=== PATIENT | female | born 1970 | race Caucasian/White ===

== ENCOUNTER 2019-05-02 15:35 | Inpatient (IN) | payer MEDICARE ==
[2019-05-02] MEDS ORDERED: methylPREDNISolone Sod Succ/PF 125 MG/2 ML VIAL ONE (16:08)
[2019-05-02] MEDS ORDERED: Oxymetazoline HCl 0.05% (30 ML BOT) ONE (16:08)
[2019-05-02 16:34] LABS: Band 9 % (5-11); Eosinophils 4 % (0-10); Hemoglobin 13.4 g/dL (12.0-16.0); Lymphocytes 7 % (21-51); MDiff Complete? YES; Mean Corpuscular HGB CONC 32.6 g/dL (32.0-36.0); Mean Corpuscular Hemoglobin 31.1 pg (27.0-31.0); Mean Corpuscular Volume 95.2 fL (78.0-98.0); Mean Platelet Volume 9.6 fL (7.4-10.4); Monocytes 3 % (0-10); Neutrophil 77 % (42-75); Platelet Clumps SLIGHT; Platelet Count 111 thou/uL (130-400); RBC Distribution Width 13.2 % (11.5-14.5); Red Blood Cell (RBC) Count 4.32 mill/uL (4.20-5.40); White Blood Cell (WBC) Count 13.6 thou/uL (4.8-10.8)
--- NOTE | 2019-05-02 16:35 | RAD ---
Chest 2 views HISTORY: Cough. FINDINGS: Cardiac silhouette and pulmonary vasculature are unremarkable. Mediastinum is midline. No c onfluent airspace consolidation, pneumothorax, or pleural fluid. IMPRESSION: No active cardiopulmonary abnormalities are demonstrated.
[2019-05-02] MEDS ORDERED: Albuterol Sulfate 1.25 MG/3 ML NEB ONE (16:55)
[2019-05-02 19:47] VITALS: BMI 42.6
[2019-05-02] MEDS ORDERED: traMADol HCl 50 MG TAB PO PRN (21:57)
[2019-05-02] MEDS ORDERED: Dicyclomine 20 MG TAB PO PRN (21:57)
[2019-05-02] MEDS ORDERED: Ondansetron ODT 4 MG TAB PO PRN (21:57)
[2019-05-02] MEDS ORDERED: traZODone HCl 50 MG TAB PO SCH (22:30)
[2019-05-02] MEDS ORDERED: tiZANidine HCl 4 MG TAB PO SCH (22:30)
[2019-05-02] MEDS ORDERED: Pregabalin 75 MG CAP PO SCH (22:30)
[2019-05-02] MEDS ORDERED: METAXALONE 400 MG PO SCH (22:30)
[2019-05-02] MEDS ORDERED: Ondansetron ODT 4 MG TAB SL PRN (23:03)
[2019-05-02] MEDS ORDERED: Acetaminophen 325 MG TAB PO PRN (23:03)
[2019-05-02] MEDS ORDERED: Ondansetron PF 4 MG/2 ML Vial IVP PRN (23:03)
[2019-05-02] MEDS ORDERED: Sodium Chloride 0.9% 1,000 ML IV SCH (23:15)
[2019-05-03] MEDS: methylPREDNISolone Sod Succ 40 MG VIAL IVP SCH ×4 (00:22→17:54)
[2019-05-03] MEDS: Promethazine DM 6.25-15mg/5ml 120 ML BOT PO PRN (05:41)
[2019-05-03 05:42] LABS: ALT (SGPT) 9 U/L (8-55); AST (SGOT) 14 U/L (5-34); Albumin 3.8 g/dL (3.5-5.0); Alkaline Phosphatase 77 U/L (40-150); Anion Gap 13 mmol/L (10-20); BUN (Urea Nitrogen) 12 mg/dL (7.0-18.7); Bilirubin, Total 0.2 mg/dL (0.2-1.2); Calc. Creatinine Clearance 130 mL/min (70-130); Calcium 9.2 mg/dL (7.8-10.44); Carbon Dioxide 25 mmol/L (22-29); Chloride 110 mmol/L (98-107); Estimated GFR-MDRD 64; Globulin 2.6 g/dL (2.4-3.5); Glucose 200 mg/dL (70-105); Potassium 4.1 mmol/L (3.5-5.1); Protein, Total 6.4 g/dL (6.0-8.3); Sodium 144 mmol/L (136-145)
[2019-05-03 06:27] LABS: #Lymphocytes 0.7 thou/uL (1.20-3.40); #Monocytes 0.1 thou/uL (0.11-0.59); #Neutrophils 13.7 thou/uL (1.40-6.50); %Basophils 0.1 % (0.0-1.0); %Eosinophils 0.1 % (0.0-10.0); %Lymphocytes 4.7 % (21.0-51.0); %Monocytes 0.8 % (0.0-10.0); %Neutrophils 94.4 % (42.0-75.0); Hemoglobin 11.8 g/dL (12.0-16.0); Mean Corpuscular HGB CONC 32.2 g/dL (32.0-36.0); Mean Corpuscular Hemoglobin 30.9 pg (27.0-31.0); Mean Platelet Volume 9.1 fL (7.4-10.4); Platelet Count 202 thou/uL (130-400); RBC Distribution Width 13.5 % (11.5-14.5); Red Blood Cell (RBC) Count 3.83 mill/uL (4.20-5.40); White Blood Cell (WBC) Count 14.5 thou/uL (4.8-10.8)
[2019-05-03] MEDS: Mometasone/Formoterol 60 PUFF AER INH SCH ×2 (08:50→18:43)
[2019-05-03] MEDS: Levothyroxine Sodium 100 MCG TAB PO SCH (08:51)
[2019-05-03] MEDS: Azithromycin 250 MG TAB PO SCH (08:51)
[2019-05-03] MEDS: guaiFENesin ER 600 MG TAB PO SCH ×2 (08:51→20:21)
[2019-05-03] MEDS: Lisinopril 20 MG TAB PO SCH (08:51)
[2019-05-03] MEDS: tiZANidine HCl 4 MG TAB PO SCH ×3 (08:52→20:21)
[2019-05-03] MEDS: Pregabalin 75 MG CAP PO SCH ×3 (08:54→20:20)
[2019-05-03] MEDS: DESVENLAFAXINE SUCCINATE 50 MG PO SCH (10:07)
[2019-05-03] MEDS: Nicotine 21 MG PATCH TD SCH (10:07)
[2019-05-03] MEDS: SULINDAC 150 MG PO SCH ×2 (10:07→20:25)
[2019-05-03] MEDS ORDERED: methylPREDNISolone Sod Succ 40 MG VIAL IVP SCH (11:45)
--- NOTE | 2019-05-03 14:05 | HP ---
CHIEF COMPLAINT: Respiratory distress. HISTORY OF PRESENT ILLNESS: A 48-year-old female, chronic smoker, presented to the [facility] Emergency Department yesterday afternoon with complaint of worsening productive cough accompanied by tachypnea and tachycardia and noted to be hypoxic on room air. The patient was treated accordingly in the emergency department secondary to her symptoms. However, upon ambulation, continued to display hypoxia with mild respiratory distress. Her chest x-ray was reassuring. Her lab work revealed a mild leukocytosis with left shift. Secondary to her need for supplemental oxygen and respiratory compromise, she was admitted to the floor. As of this morning, she reports this is largely unchanged. She has produced productive phlegm overnight with a regular cough. She remained afebrile. She has been provided normal saline intravenous fluids, scheduled nebulized treatments, and IV Solu-Medrol up to this point. She confirms her history of continued tobacco abuse and states that she is not typically on home oxygen. She is a patient of Dr. 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 PAST MEDICAL HISTORY: Includes; 1. Fibromyalgia. 2. Chronic smoker. 3. Hyperlipidemia. 4. Hypertension. 5. Hypothyroidism. 6. Gastroesophageal reflux disease. 7. Depression. FAMILY HISTORY: Noncontributory. SOCIAL HISTORY: She is a chronic smoker. Occasional ETOH. Denies illicit drug use. ALLERGIES: SULFA AND PINEAPPLE. HOME MEDICATIONS: Include; 1. Lyrica 150 mg p.o. b.i.d. 2. Trazodone 50 mg at bedtime. 3. Tramadol 50 mg q.6 hours p.r.n. 4. Tizanidine 4 mg t.i.d. 5. Sulindac 150 mg b.i.d. 6. Zofran 4 mg q.6 hours p.r.n. 7. Omeprazole 40 mg daily. 8. Metaxalone 400 mg at bedtime. 9. Lisinopril 20 mg daily. 10. Levothyroxine 100 mcg daily. 11. Bentyl 20 mg daily as needed. 12. Pristiq 50 mg daily. REVIEW OF SYSTEMS: GENERAL: Denies fever, chills, or diaphoresis. EAR, NOSE, AND THROAT: Complains of congestion. CARDIOVASCULAR: Denies chest pain or palpitations. RESPIRATORY: Complains of shortness of breath and cough. GASTROINTESTINAL: Denies abdominal pain, nausea, vomiting, diarrhea, or constipation. GENITOURINARY: Denies dysuria. MUSCULOSKELETAL: Complains of chronic musculoskeletal pain. DERM: Denies rash. NEURO: Denies headache. LABORATORY DATA: White blood cell count is 14.5, H and H are 11.8 and 36.8, platelets are 202. Sodium 144, potassium 4.1, BUN is 12, creatinine 0.93 with a GFR of 64, glucose 200, AST 14, ALT 9. IMAGING DATA: On 05/02/2019, chest x-ray shows no active cardiopulmonary abnormality demonstrated. PHYSICAL EXAMINATION: VITAL SIGNS: Temperature is 98.6, pulse is 98, respiratory rate is 20, oxygen 95% on 3 L, blood pressure is 114/53. GENERAL: She is alert and oriented, in no acute distress. She is obese. HEAD, EYES, EARS, NOSE, AND THROAT: Normocephalic, atraumatic. Pupils are equal, round, and reactive to light. Extraocular muscles are intact bilaterally. She has moist mucous membranes. NECK: Supple without lymphadenopathy. CARDIOVASCULAR: Borderline sinus tachycardia. Normal S1, S2. No murmurs. RESPIRATORY: She has coarse breath sounds with few end-expiratory wheezes. She has nasal cannula in place. She is in no active respiratory distress. ABDOMEN: Soft, nontender to palpation. No rebound or guarding. EXTREMITIES: No clubbing, cyanosis, or edema. SKIN: No rashes. NEUROLOGIC: Nonfocal with cranial nerves 2 through 12 grossly intact. ASSESSMENT AND PLAN: 1. Acute bronchospasm with hypoxia. The patient has been started on IV Solu- Medrol, which will be continued. Will provide the patient with an incentive spirometer. She is on supplemental oxygen, which is not at her baseline. We will wean this as tolerated. I will start the patient on Dulera. She is receiving scheduled nebulized treatments. The patient has a mild leukocytosis with left shift and productive phlegm. We will provide her with an oral course of azithromycin. 2. Hypertension. She is hemodynamically stable. Resume her home blood pressure medications. 3. History of dyslipidemia. She is not actively on a statin. 4. Hypothyroidism. We will resume the patient's levothyroxine. 5. Fibromyalgia. We will resume the patient's Lyrica and muscle relaxers. 6. Depression. The patient will be resumed on Pristiq. 7. Smoker. We will provide the patient with a nicotine patch. She has been counseled on need for smoking cessation. 8. Prophylaxis. We will resume the patient's home PPI for GI prophylaxis. We will start her on Lovenox 40 mg daily for DVT prophylaxis. CODE STATUS: Full. DISPOSITION: We will plan to discharge the patient home when she is at or near her baseline respiratory status and effectively wean from supplemental oxygen. Job ID: [id number] [facility]
[2019-05-03] MEDS: Acetaminophen 325 MG TAB PO PRN (15:17)
[2019-05-03] MEDS: BUPRENORPHINE SL SCH (20:19)
[2019-05-03] MEDS: Enoxaparin Sodium 40 MG/0.4 ML SYRINGE SC SCH (20:23)
[2019-05-03] MEDS: traZODone HCl 50 MG TAB PO SCH (20:24)
[2019-05-03] MEDS: METAXALONE 400 MG PO SCH (20:25)
[2019-05-04] MEDS: methylPREDNISolone Sod Succ 40 MG VIAL IVP SCH ×4 (00:21→22:16)
[2019-05-04 05:29] LABS: Anion Gap 13 mmol/L (10-20); BUN (Urea Nitrogen) 19 mg/dL (7.0-18.7); Calc. Creatinine Clearance 142 mL/min (70-130); Calcium 9.1 mg/dL (7.8-10.44); Carbon Dioxide 25 mmol/L (22-29); Chloride 110 mmol/L (98-107); Estimated GFR-MDRD 71; Glucose 182 mg/dL (70-105); Potassium 4.2 mmol/L (3.5-5.1); Sodium 144 mmol/L (136-145)
[2019-05-04 05:56] LABS: Band 4 % (5-11); Hemoglobin 11.4 g/dL (12.0-16.0); Lymphocytes 8 % (21-51); MDiff Complete? YES; Mean Corpuscular HGB CONC 31.6 g/dL (32.0-36.0); Mean Corpuscular Hemoglobin 30.7 pg (27.0-31.0); Mean Corpuscular Volume 97.1 fL (78.0-98.0); Mean Platelet Volume 8.5 fL (7.4-10.4); Monocytes 1 % (0-10); Neutrophil 87 % (42-75); Platelet Count 217 thou/uL (130-400); Platelet Morphology Comment Appears Adequate; RBC Distribution Width 13.8 % (11.5-14.5); RBC Morphology Normal; Red Blood Cell (RBC) Count 3.71 mill/uL (4.20-5.40); White Blood Cell (WBC) Count 23.9 thou/uL (4.8-10.8)
[2019-05-04] MEDS: Mometasone/Formoterol 60 PUFF AER INH SCH ×2 (06:00→18:31)
[2019-05-04] MEDS: Acetaminophen 325 MG TAB PO PRN (08:45)
[2019-05-04] MEDS: tiZANidine HCl 4 MG TAB PO SCH ×3 (08:54→20:50)
[2019-05-04] MEDS: guaiFENesin ER 600 MG TAB PO SCH ×2 (08:54→20:50)
[2019-05-04] MEDS: Pregabalin 75 MG CAP PO SCH ×2 (08:55→20:46)
[2019-05-04] MEDS: Levothyroxine Sodium 100 MCG TAB PO SCH (08:56)
[2019-05-04] MEDS: Azithromycin 250 MG TAB PO SCH (08:57)
[2019-05-04] MEDS: Lisinopril 20 MG TAB PO SCH (08:57)
[2019-05-04] MEDS: Nicotine 21 MG PATCH TD SCH (08:58)
[2019-05-04] MEDS: DESVENLAFAXINE SUCCINATE 50 MG PO SCH (09:08)
[2019-05-04] MEDS: SULINDAC 150 MG PO SCH ×2 (09:09→20:43)
[2019-05-04] MEDS: BUPRENORPHINE SL SCH ×2 (09:10→20:44)
[2019-05-04] MEDS: Promethazine DM 6.25-15mg/5ml 120 ML BOT PO PRN (20:45)
[2019-05-04] MEDS: Enoxaparin Sodium 40 MG/0.4 ML SYRINGE SC SCH (20:45)
[2019-05-04] MEDS: traZODone HCl 50 MG TAB PO SCH (20:46)
[2019-05-04] MEDS: METAXALONE 400 MG PO SCH (20:47)
[2019-05-04] MEDS: Famotidine 20 MG TAB PO SCH (21:36)
[2019-05-05 05:34] LABS: #Basophils 0.1 thou/uL (0.0-0.2); #Lymphocytes 1.3 thou/uL (1.20-3.40); #Monocytes 0.7 thou/uL (0.11-0.59); #Neutrophils 18.8 thou/uL (1.40-6.50); %Basophils 0.5 % (0.0-1.0); %Lymphocytes 6.1 % (21.0-51.0); %Monocytes 3.4 % (0.0-10.0); Hemoglobin 11.5 g/dL (12.0-16.0); Mean Corpuscular HGB CONC 31.4 g/dL (32.0-36.0); Mean Corpuscular Hemoglobin 30.4 pg (27.0-31.0); Mean Corpuscular Volume 96.8 fL (78.0-98.0); Mean Platelet Volume 8.4 fL (7.4-10.4); Platelet Count 223 thou/uL (130-400); RBC Distribution Width 13.6 % (11.5-14.5); White Blood Cell (WBC) Count 20.9 thou/uL (4.8-10.8)
[2019-05-05 05:39] LABS: Anion Gap 12 mmol/L (10-20); BUN (Urea Nitrogen) 23 mg/dL (7.0-18.7); Calc. Creatinine Clearance 141 mL/min (70-130); Calcium 9.1 mg/dL (7.8-10.44); Carbon Dioxide 27 mmol/L (22-29); Chloride 108 mmol/L (98-107); Estimated GFR-MDRD 70; Glucose 164 mg/dL (70-105); Potassium 4.8 mmol/L (3.5-5.1); Sodium 142 mmol/L (136-145)
[2019-05-05] MEDS: methylPREDNISolone Sod Succ 40 MG VIAL IVP SCH ×3 (05:49→21:09)
[2019-05-05] MEDS: Mometasone/Formoterol 60 PUFF AER INH SCH ×2 (06:12→18:43)
[2019-05-05] MEDS: Nicotine 21 MG PATCH TD SCH (09:03)
[2019-05-05] MEDS: Polyethylene Glycol 3350 17 GM Packet PO SCH (09:03)
[2019-05-05] MEDS: Pregabalin 75 MG CAP PO SCH ×2 (09:05→20:38)
[2019-05-05] MEDS: Lisinopril 20 MG TAB PO SCH (09:06)
[2019-05-05] MEDS: tiZANidine HCl 4 MG TAB PO SCH ×3 (09:06→20:39)
[2019-05-05] MEDS: guaiFENesin ER 600 MG TAB PO SCH ×2 (09:06→20:39)
[2019-05-05] MEDS: Levothyroxine Sodium 100 MCG TAB PO SCH ×2 (09:07→09:09)
[2019-05-05] MEDS: Azithromycin 250 MG TAB PO SCH (09:07)
[2019-05-05] MEDS: BUPRENORPHINE SL SCH ×2 (09:10→20:42)
[2019-05-05] MEDS: DESVENLAFAXINE SUCCINATE 50 MG PO SCH (09:10)
[2019-05-05] MEDS: SULINDAC 150 MG PO SCH ×2 (09:11→20:43)
[2019-05-05] MEDS: traZODone HCl 50 MG TAB PO SCH (20:37)
[2019-05-05] MEDS: Enoxaparin Sodium 40 MG/0.4 ML SYRINGE SC SCH (20:40)
[2019-05-05] MEDS: Famotidine 20 MG TAB PO SCH (20:40)
[2019-05-05] MEDS: METAXALONE 400 MG PO SCH (20:45)
[2019-05-05] MEDS: Promethazine DM 6.25-15mg/5ml 120 ML BOT PO PRN (23:02)
[2019-05-06] MEDS: methylPREDNISolone Sod Succ 40 MG VIAL IVP SCH (06:19)
[2019-05-06] MEDS: Mometasone/Formoterol 60 PUFF AER INH SCH (06:22)
[2019-05-06 07:39] VITALS: TEMP 98.6
[2019-05-06] MEDS: Polyethylene Glycol 3350 17 GM Packet PO SCH (08:33)
[2019-05-06] MEDS: Pregabalin 75 MG CAP PO SCH (08:34)
[2019-05-06] MEDS: Levothyroxine Sodium 100 MCG TAB PO SCH (08:36)
[2019-05-06] MEDS: DESVENLAFAXINE SUCCINATE 50 MG PO SCH (08:38)
[2019-05-06] MEDS: BUPRENORPHINE SL SCH (08:38)
[2019-05-06] MEDS: Lisinopril 20 MG TAB PO SCH (08:39)
[2019-05-06] MEDS: guaiFENesin ER 600 MG TAB PO SCH (08:39)
[2019-05-06] MEDS: Nicotine 21 MG PATCH TD SCH (08:39)
[2019-05-06] MEDS: tiZANidine HCl 4 MG TAB PO SCH (08:39)
[2019-05-06] MEDS: Azithromycin 250 MG TAB PO SCH (08:39)
[2019-05-06] MEDS: SULINDAC 150 MG PO SCH (08:50)
[2019-05-06 08:51] VITALS: BP 118/70
--- NOTE | 2019-05-06 11:16 | DIS ---
DATE OF ADMISSION: 05/02/2019 DATE OF DISCHARGE: 05/06/2019 ADMISSION DIAGNOSIS: Acute bronchospasm with hypoxia. SECONDARY DIAGNOSES: Hypertension, dyslipidemia, hypothyroidism, fibromyalgia, obesity, depression, chronic smoker. PROCEDURES: Chest x-ray on 05/02/2019 showed no active cardiopulmonary abnormalities. HOSPITAL COURSE: A 48-year-old female, chronic smoker, presented to the [facility] Emergency Department with URI symptoms accompanied by abnormal vital signs including tachypnea, tachycardia, and hypoxia. She was treated acutely in the emergency department, however, remained hypoxic on room air with any activity. Secondary to her compromised respiratory status, she was admitted, started on IV Solu-Medrol, scheduled neb treatments, and supplemental oxygen. The patient had a frequent and intermittent productive cough. She was provided an oral course of azithromycin during her stay. The patient's vital signs improved back to her baseline. The patient's supplemental oxygen was gradually weaned throughout her stay. She was evaluated by Physical Therapy during her stay and confirmed stability of her functional status. The patient initially did have a mild leukocytosis with left shift; her leukocytosis did increase during her stay, however, this was felt to be secondary from her regular IV Solu-Medrol treatment. She did remain afebrile throughout her stay. At this time, the patient has been able to successfully wean her supplemental oxygen and is breathing well on room air and is appropriate for discharge to which she is amenable. The patient has been counseled on smoking cessation and may potentially benefit from an outpatient followup with Pulmonology for pulmonary function testing. DISPOSITION: The patient was discharged home and may follow up with her primary care physician, Dr. Tony Recio, next week. DISCHARGE MEDICATIONS: Two new medicines include Dulera two puffs b.i.d. and prednisone taper 20 mg two tabs x3 days followed by one tab x3 days. She will resume her usual medications otherwise, which include; 1. Lyrica 150 mg b.i.d. 2. Trazodone 50 mg at bedtime. 3. Tramadol 50 mg q.6 hours p.r.n. 4. Tizanidine 4 mg t.i.d. 5. Sulindac 150 mg b.i.d. 6. Zofran 4 mg q.6 hours p.r.n. 7. Omeprazole 40 mg daily. 8. Metaxalone 400 mg at bedtime. 9. Lisinopril 20 mg daily. 10. Levothyroxine 100 mcg daily. 11. Bentyl 20 mg daily p.r.n. 12. Pristiq 50 mg daily. Job ID: [id number]
== END 2019-05-06 09:52 | disposition home or self-care (01) | DRG 206 ==
LOC: BURERS 15:35 → OBSVTOIN 18:40 → BURMED 18:40 → INTOOBSV 18:40 → UNDOADMOB 18:40 → BURMED 18:40
PROVIDERS: ADMIT Family Medicine; ATTEND Family Medicine
DX: R09.02 Hypoxemia (principal); Z68.41 Body mass index [BMI] 40.0-44.9, adult; J98.01 Acute bronchospasm; M79.7 Fibromyalgia; E78.5 Hyperlipidemia, unspecified; I10 Essential (primary) hypertension; E03.9 Hypothyroidism, unspecified; K21.9 Gastro-esophageal reflux disease without esophagitis; F32.9 Major depressive disorder, single episode, unspecified; F17.200 Nicotine dependence, unspecified, uncomplicated; K59.00 Constipation, unspecified; E66.9 Obesity, unspecified; D72.829 Elevated white blood cell count, unspecified; Z88.2 Allergy status to sulfonamides; Z71.6 Tobacco abuse counseling
CPT/HCPCS: 36415; 71046; 80048; 80053; 85025; 94640; 94664; 96360; 96361; 96365; 96375; G0378; J1650; J2920; J2930; J7620; Q0162

== ENCOUNTER 2020-07-23 11:59 | Emergency (ER) | payer MEDICARE, OTHER ==
[2020-07-23] MEDS ORDERED: Ondansetron PF 4 MG/2 ML Vial ONE (12:48)
[2020-07-23] MEDS ORDERED: Morphine 4 MG/ML VIAL ONE (13:01)
[2020-07-23 13:20] LABS: #Basophils 0.1 thou/uL (0.0-0.2); #Eosinphils 0.1 thou/uL (0.0-0.7); #Lymphocytes 1.7 thou/uL (1.20-3.40); #Monocytes 0.6 thou/uL (0.11-0.59); #Neutrophils 8.3 thou/uL (1.40-6.50); %Basophils 0.6 % (0.0-1.0); %Lymphocytes 15.8 % (21.0-51.0); %Monocytes 5.2 % (0.0-10.0); %Neutrophils 77.4 % (42.0-75.0); Hemoglobin 14.7 g/dL (12.0-16.0); Mean Corpuscular HGB CONC 30.5 g/dL (32.0-36.0); Mean Corpuscular Hemoglobin 30.1 pg (27.0-31.0); Mean Corpuscular Volume 98.7 fL (78.0-98.0); Mean Platelet Volume 8.9 fL (7.4-10.4); Platelet Count 297 thou/uL (130-400); RBC Distribution Width 14.1 % (11.5-14.5); White Blood Cell (WBC) Count 10.7 thou/uL (4.8-10.8)
[2020-07-23 13:34] LABS: ALT (SGPT) 39 U/L (8-55); AST (SGOT) 67 U/L (5-34); Albumin 4.6 g/dL (3.5-5.0); Alkaline Phosphatase 105 U/L (40-110); Anion Gap 22 mmol/L (10-20); BUN (Urea Nitrogen) 10 mg/dL (7.0-18.7); Bilirubin, Total 0.6 mg/dL (0.2-1.2); Calc. Creatinine Clearance 0 mL/min (70-130); Calcium 9.9 mg/dL (7.8-10.44); Carbon Dioxide 23 mmol/L (22-29); Chloride 99 mmol/L (98-107); Estimated GFR-MDRD 43; Globulin 3.3 g/dL (2.4-3.5); Glucose 133 mg/dL (70-105); Lipase 60 U/L (8-78); Potassium 3.7 mmol/L (3.5-5.1); Protein, Total 7.9 g/dL (6.0-8.3); Sodium 140 mmol/L (136-145)
[2020-07-23] MEDS ORDERED: Promethazine HCl 25 MG/ML VIAL ONE (14:25)
--- NOTE | 2020-07-23 14:26 | RAD ---
PORTABLE CHEST: Date: 07/23/2020 An AP portable film at 1356 hours is compared with the 05/02/2019 study. FINDINGS: The heart is upper normal in size, but probably still acceptable given body habitus and an AP project ion. There is no infiltrate, effusion, or pulmonary edema. The trachea is midline. IMPRESSION: No definite acute findings. POS: HOME
--- NOTE | 2020-07-23 14:30 | CT ---
CT ABDOMEN AND PELVIS WITH CONTRAST: Date: 07/23/2020 Comparison is made with the 01/14/2019 CT. Today's exam shows the lung bases are clear. The liver is mildly prominent in size and shows diffuse fatty infiltration. The spleen is normal in size. The pancreas, adrenal glands, kidneys, and abdomina l aorta showed no acute findings. No stones were seen in the gallbladder, which is mildly prominent i n size at 8.9 cm. The wall does not appear thickened. There is diffuse colonic wall thickening, particularly involving the right colon and transverse colon . Sigmoid diverticulosis is present as before without findings of diverticulitis. No free air or free fluid was present. CT of the pelvis shows a possible uterine fibroid in the fundus of the uterus. Ultrasound would be co nfirmatory. No free fluid, adnexal masses, or inflammatory changes were seen. IMPRESSION: 1. Diffuse colitis, especially right and transverse colon. 2. Mild hepatomegaly with diffuse fatty infiltration. The degree of infiltration seems more prominen t than 2018. 3. Sigmoid diverticulosis without findings of diverticulitis. 4. Possible uterine fibroid. Report called to Dr. Holder at 1412 hours on 07/23/2020. CODE CR. POS: HOME
[2020-07-23 15:36] LABS: Bilirubin Negative (Negative); Blood, Urine Negative (Negative); Clarity Clear (Clear); Glucose, Urine (Dipstick) Negative (Negative); Ketone, Urine Trace mg/dL (Negative); Leukocyte Negative (Negative); Nitrite Negative (Negative); Protein, Urine (Dipstick) Negative (Neg-Trace); Urobilinogen 0.2 mg/dL (Less than 2)
[2020-07-23] MEDS ORDERED: Iopamidol 370 76% 100 ML VIAL ONE (17:11)
[2020-07-24 12:05] LABS: SARS-CoV-2 MS2 Positive; SARS-CoV-2 N Gene Negative; SARS-CoV-2 S Gene Negative; SARS-CoV-2 orf1ab Negative
[2020-07-24 19:20] LABS: SARS-CoV-2 by NAA Not Detected (NotDetected)
== END 2020-07-23 16:30 | disposition home or self-care (01) ==
LOC: BURERS 11:59
DX: K52.9 Noninfective gastroenteritis and colitis, unspecified (principal); Z20.828 Contact with and (suspected) exposure to other viral communicable diseases; E03.9 Hypothyroidism, unspecified; R11.2 Nausea with vomiting, unspecified; I10 Essential (primary) hypertension; F32.9 Major depressive disorder, single episode, unspecified; F41.9 Anxiety disorder, unspecified; F17.210 Nicotine dependence, cigarettes, uncomplicated; Z79.899 Other long term (current) drug therapy
CPT/HCPCS: 71045; 74177; 80053; 81003; 83690; 84484; 85025; 87804 ×2; 93005; 96361; 96374; 96375; 99284; U0003; 87635; J2270; J2405; J2550; Q9967

== ENCOUNTER 2021-09-26 10:16 | Observation (INO) | payer MEDICARE ==
[2021-09-26 11:20] LABS: #Basophils 0.1 thou/uL (0.0-0.2); #Eosinphils 0.2 thou/uL (0.0-0.7); #Lymphocytes 1.3 thou/uL (1.20-3.40); #Monocytes 0.5 thou/uL (0.11-0.59); #Neutrophils 3.1 thou/uL (1.40-6.50); %Basophils 1.1 % (0.0-1.0); %Eosinophils 4.5 % (0.0-10.0); %Lymphocytes 25.1 % (21.0-51.0); %Monocytes 8.9 % (0.0-10.0); %Neutrophils 60.4 % (42.0-75.0); Hemoglobin 14.6 g/dL (12.0-16.0); Mean Corpuscular HGB CONC 32.7 g/dL (32.0-36.0); Mean Corpuscular Hemoglobin 31.2 pg (27.0-31.0); Mean Corpuscular Volume 95.3 fL (78.0-98.0); Mean Platelet Volume 8.4 fL (7.4-10.4); Platelet Count 217 thou/uL (130-400); RBC Distribution Width 13.2 % (11.5-14.5); Red Blood Cell (RBC) Count 4.69 mill/uL (4.20-5.40); White Blood Cell (WBC) Count 5.1 thou/uL (4.8-10.8)
[2021-09-26 11:38] LABS: ALT (SGPT) 35 U/L (8-55); AST (SGOT) 57 U/L (5-34); Albumin 4.2 g/dL (3.5-5.0); Alkaline Phosphatase 97 U/L (40-110); Anion Gap 15 mmol/L (10-20); BUN (Urea Nitrogen) 12 mg/dL (9.8-20.1); Bilirubin, Total 0.4 mg/dL (0.2-1.2); Calc. Creatinine Clearance 0 mL/min (70-130); Calcium 9.7 mg/dL (7.8-10.44); Carbon Dioxide 24 mmol/L (22-29); Chloride 105 mmol/L (98-107); Globulin 3.3 g/dL (2.4-3.5); Glucose 188 mg/dL (70-105); Potassium 3.7 mmol/L (3.5-5.1); Protein, Total 7.5 g/dL (6.0-8.3); Sodium 140 mmol/L (136-145)
[2021-09-26] MEDS ORDERED: methylPREDNISolone Sod Succ/PF 125 MG/2 ML VIAL ONE (13:37)
[2021-09-26] MEDS ORDERED: Benzonatate 100 MG CAP ONE (13:37)
[2021-09-26 14:31] LABS: SARS-CoV-2 NAA Rapid Test Not Detected (NotDetected)
[2021-09-26 14:38] VITALS: BMI 45.8
[2021-09-26] MEDS: Sodium Chloride 0.9% 1,000 ML IV SCH ×4 (15:00→23:41)
[2021-09-26] MEDS ORDERED: Dicyclomine 20 MG TAB PO PRN (16:23)
[2021-09-26] MEDS ORDERED: Ondansetron ODT 4 MG TAB PO PRN (16:23)
[2021-09-26] MEDS ORDERED: Acetaminophen 500 MG TAB PO PRN (16:24)
[2021-09-26] MEDS ORDERED: Senokot S 8.6-50 MG TAB PO PRN (16:25)
[2021-09-26] MEDS ORDERED: Melatonin 3 MG TAB PO PRN (16:26)
[2021-09-26] MEDS ORDERED: ORPHENADRINE CITRATE 100 MG PO PRN (16:42)
[2021-09-26 17:03] LABS: Bilirubin Negative (Negative); Blood, Urine Negative (Negative); Clarity Cloudy (Clear); Glucose, Urine (Dipstick) 500 mg/dL (Negative); Ketone, Urine 15 mg/dL (Negative); Leukocyte Small (Negative); Nitrite Negative (Negative); Protein, Urine (Dipstick) Negative (Neg-Trace); Urobilinogen 0.2 mg/dL (Less than 2); pH, Urine 5.5 (5.0-9.0)
[2021-09-26 17:28] LABS: Bacteria/HPF 3+ HPF (None Seen); Mucous/LPF 1+ LPF (<2+); RBC/HPF None Seen HPF (0-3)
[2021-09-26] MEDS: Benzonatate 100 MG CAP PO PRN ×2 (17:32→22:14)
[2021-09-26] MEDS: Ciprofloxacin 500 MG TAB PO SCH (21:03)
[2021-09-26] MEDS: Pregabalin 75 MG CAP PO SCH (21:04)
[2021-09-26] MEDS: Lisinopril 20 MG TAB PO SCH (21:05)
[2021-09-26] MEDS: SULINDAC 150 MG PO SCH (21:17)
[2021-09-26] MEDS: Calcium Carbonate 500 MG ChewTAB PO PRN (22:11)
[2021-09-27] MEDS: Levothyroxine Sodium 112 MCG TAB PO SCH (06:22)
[2021-09-27] MEDS: Ciprofloxacin 500 MG TAB PO SCH ×2 (06:22→20:24)
[2021-09-27] MEDS: Benzonatate 100 MG CAP PO PRN ×2 (06:25→21:19)
[2021-09-27] MEDS: Pregabalin 75 MG CAP PO SCH ×2 (08:58→20:26)
[2021-09-27] MEDS: Venlafaxine HCl XR 75 MG CAP PO SCH (09:00)
[2021-09-27] MEDS: Sodium Chloride 0.9% 1,000 ML IV SCH ×2 (12:06→23:55)
[2021-09-27] MEDS: methylPREDNISolone Sod Succ 40 MG VIAL IVP SCH ×3 (12:06→23:55)
[2021-09-27] MEDS: Calcium Carbonate 500 MG ChewTAB PO PRN ×2 (14:41→20:24)
[2021-09-27] MEDS ORDERED: Loperamide HCl 2 MG CAP PO SCH (14:45)
[2021-09-27] MEDS: Lisinopril 20 MG TAB PO SCH (20:24)
[2021-09-27] MEDS: SULINDAC 150 MG PO SCH (20:25)
[2021-09-27] MEDS ORDERED: Loperamide HCl 2 MG CAP PO PRN ×2 (20:46→20:51)
[2021-09-28] MEDS: methylPREDNISolone Sod Succ 40 MG VIAL IVP SCH ×2 (05:28→12:40)
[2021-09-28] MEDS: Ciprofloxacin 500 MG TAB PO SCH (05:28)
[2021-09-28] MEDS: Levothyroxine Sodium 112 MCG TAB PO SCH (05:28)
[2021-09-28 05:47] LABS: Anion Gap 14 mmol/L (10-20); BUN (Urea Nitrogen) 12 mg/dL (9.8-20.1); Calc. Creatinine Clearance 151 mL/min (70-130); Calcium 10.2 mg/dL (7.8-10.44); Carbon Dioxide 26 mmol/L (22-29); Chloride 103 mmol/L (98-107); Glucose 328 mg/dL (70-105); Potassium 4.1 mmol/L (3.5-5.1); Sodium 139 mmol/L (136-145)
[2021-09-28] MEDS: Pregabalin 75 MG CAP PO SCH (09:35)
[2021-09-28] MEDS: Venlafaxine HCl XR 75 MG CAP PO SCH (09:35)
[2021-09-28] MEDS: Calcium Carbonate 500 MG ChewTAB PO PRN (09:36)
[2021-09-28] MEDS: Sodium Chloride 0.9% 1,000 ML IV SCH (12:40)
[2021-09-28 13:42] VITALS: BP 118/77; TEMP 99.1
[2021-09-28] MEDS ORDERED: Albuterol 200 PUFF (6.7GM INHALER) INH SCH (15:00)
[2021-09-28] MEDS ORDERED: Albuterol Sulfate 2.5 mg/3 ml Neb EZPAP SCH (15:00)
[2021-09-28 16:58] LABS: Hemoglobin A1c 8.4 % (4.0-6.0)
[2021-09-29] MEDS ORDERED: predniSONE 20 MG TAB PO SCH (08:00)
== END 2021-09-28 14:15 | disposition home or self-care (01) ==
LOC: BURERS 10:16 → BURMED 14:05
PROVIDERS: ADMIT Family Medicine; ATTEND Family Medicine
DX: B34.9 Viral infection, unspecified (principal); E86.0 Dehydration; R00.0 Tachycardia, unspecified; J98.01 Acute bronchospasm; R73.9 Hyperglycemia, unspecified; K58.9 Irritable bowel syndrome, unspecified; E03.9 Hypothyroidism, unspecified; I10 Essential (primary) hypertension; G89.29 Other chronic pain; M54.9 Dorsalgia, unspecified; E66.9 Obesity, unspecified; Z68.42 Body mass index [BMI] 45.0-49.9, adult; Z87.891 Personal history of nicotine dependence; Z79.899 Other long term (current) drug therapy; Z88.2 Allergy status to sulfonamides; Z91.018 Allergy to other foods; Z20.822 Contact with and (suspected) exposure to COVID-19
CPT/HCPCS: 36415; 71045; 80048; 80053; 81001; 83036; 83880; 84484; 85025; 87086; 87804; 96374; 96376; G0378; J2920; J2930; J7050; J7620; U0002